=== PATIENT | female | born 1980 | race American Indian/Alaskan Native ===

== ENCOUNTER 2017-04-27 17:30 | Outpatient (CLI) | payer MEDICAID ==
[2017-04-27] MEDS ORDERED: LACTATED RINGERS 500 ML IV ONE (18:14)
[2017-04-27 18:54] VITALS: BP 106/53
[2017-04-27 19:31] LABS: Bilirubin,Urine NEG (Negative); Blood,Urine NEG (Negative); Ketones,Urine NEG (Negative); Leukocyte Esterase,Urine NEG (Negative); Nitrite,Urine NEG (Negative); Protein,Urine <15 mg/dL mg/dL (Negative); Urobilinogen,Urine < 2.0 mg/dL (<2.0); WBC,Urine < 1.0 /HPF (0.0-6.0)
[2017-04-27] MEDS ORDERED: DULCOLAX PR ONE (20:08)
== END 2017-04-27 20:20 | disposition home or self-care (01) ==
LOC: TRG 17:30
PROVIDERS: ATTEND Obstetrics & Gynecology
DX: O09.523 Supervision of elderly multigravida, third trimester (principal); O99.333 Smoking (tobacco) complicating pregnancy, third trimester; O47.03 False labor before 37 completed weeks of gestation, third trimester; Z3A.31 31 weeks gestation of pregnancy
CPT/HCPCS: 59025; 81001

== ENCOUNTER 2017-06-02 11:35 | Outpatient (CLI) | payer MEDICAID ==
[2017-06-02 12:09] VITALS: BP 107/64
== END 2017-06-02 13:10 | disposition home or self-care (01) ==
LOC: TRG 11:35
PROVIDERS: ATTEND Obstetrics & Gynecology
DX: O09.523 Supervision of elderly multigravida, third trimester (principal); O47.1 False labor at or after 37 completed weeks of gestation; Z3A.37 37 weeks gestation of pregnancy
CPT/HCPCS: 59025

== ENCOUNTER 2017-06-15 09:37 | Inpatient (IN) | payer MEDICAID ==
[2017-06-15] MEDS ORDERED: POLYCILLIN/NS 2 GM/100 ML 2 GM/100 ML BAG IV ONE ×3 (11:00→15:30)
[2017-06-15] MEDS ORDERED: MINERAL OIL PO PRN (11:00)
[2017-06-15] MEDS ORDERED: ZOFRAN IV PRN (11:00)
--- NOTE | 2017-06-15 11:07 | History and Physical Report ---
History of Present Illness Date of admission: 06/15/17 09:37 Chief complaint: Presents for scheduled induction of labor per APA recommendation for IUGR History of present illness: Early entry to care, co-managed with [facility] due to AMA, IUGR, and talipes. course complicated by smoking, Vitamin D deficiency, and inconsistent care. Past History Past Medical History: no pertinent history Past Surgical History: PRICE CHANGER/uterine surgery (Salpingectomy; and D&C (EAB)) Family/Genetic History: diabetes (Brother), hypertension (Brother) Social history: no significant social history, single, smoking (Smokes 1/2 Pack Cigarettes Daily; 2 THC Blunts Daily) - Obstetrical History Expected Date of Delivery: 06/23/17 Actual Gestation: 38 Week(s) 6 Day(s) : 6 Para: 2 Hx # Term Pregnancies: 2 Spontaneous Abortions: 2 Induced : 1 Number of Living Children: 2 #1 Gender: Male year: 2,[birth year] Birthweight: 3.799 kg Method of Delivery: Vaginal Gestational age at delivery: 41 Complications: none #2 Infant Gender: Female year: 2,[birth year] Birthweight: 2.438 kg Method of Delivery: Vaginal Gestational age at delivery: 40 Medications and Allergies Allergies Allergy/AdvReac Type Severity Reaction Status Date / Time No Known Allergies Allergy Verified 11/10/16 17:59 Home Medications Medication Instructions Recorded Confirmed Last Taken Type No Known Home Medications [No 11/10/16 11/10/16 Unknown History Reported Home Medications] Active Meds: Active Medications Butorphanol Tartrate (Stadol) 2 mg IV Q2H PRN PRN Reason: Pain , Severe (7-10) Ephedrine Sulfate (Ephedrine Sulfate) 10 mg IV Q2M PRN PRN Reason: Hypotension Stop: 06/16/17 10:59 Ampicillin Sodium (Polycillin/Ns 1 Gm/50 Ml) 1 gm in 50 mls @ 100 mls/hr IV Q4HR HUYEN PRN Reason: Protocol Ampicillin Sodium (Polycillin/Ns 2 Gm/100 Ml) 2 gm in 100 mls @ 100 mls/hr IV ONCE ONE PRN Reason: Protocol Stop: 06/15/17 11:59 Lactated Ringer's (Lactated Ringers) 1,000 mls @ 125 mls/hr IV DIRECT HUYEN Oxytocin/Sodium Chloride (Pitocin/Ns 20 Unit/1000ml Drip) 20 units in 1,000 mls @ 125 mls/hr IV DIRECT HUYEN Oxytocin/Sodium Chloride (Pitocin/Ns 30 Unit/500ml) 30 units in 500 mls @ 4 mls /hr IV TITR HUYEN PRN Reason: Protocol Lidocaine (Xylocaine 2%) 20 ml INFILTRATI ONCE ONE Stop: 06/15/17 10:57 Mineral Oil (Mineral Oil) 30 ml PO QHS PRN PRN Reason: Constipation Naloxone HCl (Narcan 0.4 Mg/1 Ml) 0.1 mg IV Q2MIN PRN PRN Reason: Res Rate </= 8 or 02 SAT < 92% Ondansetron HCl (Zofran) 4 mg IV Q8H PRN PRN Reason: Nausea And Vomiting Terbutaline Sulfate (Brethine) 0.25 mg SUB-Q ONCE PRN PRN Reason: Hyperstimulation/Hypertonicity Stop: 06/15/17 10:57 Terbutaline Sulfate (Brethine) 0.25 mg IVP ONCE PRN PRN Reason: Hyperstimulation/Hypertonicity Stop: 06/15/17 10:57 Review of Systems All systems: negative - Vital Signs Vital signs: Vital Signs Pulse Pulse Ox 80 99 06/15/17 10:49 06/15/17 10:49 Temp Pulse Resp BP Pulse Ox 83 98 06/15/17 11:04 06/15/17 11:04 - Physical Exam Breasts: Positive: normal Cardiovascular: Regular rate Lungs: Positive: Clear to auscultation, Normal air movement Abdomen: Positive: normal appearance, soft, normal bowel sounds Genitourinary (Female): Positive: normal external genitalia, normal perenium Vagina: Positive: normal moisture Uterus: Positive: enlarged - Obstetrical FHR: category 1 Uterine Contraction Monitor Mode: External Cervical Dilatation: 3 Cervical Effacement Percentage: 60 station: -3 Uterine Contraction Pattern: Irregular Uterine Tone Measurement Phase: Resting Uterine Contraction Intensity: Mild Results All other labs normal. Assessment and Plan A: IUP @ 38 6/7 Weeks Category I Tracing IUGR [place] GBS unknown P: Admit to L&D per routine orders Pitocin Induction GBS Prophylaxis
[2017-06-15] MEDS ORDERED: XYLOCAINE 2% INFILTRATI ONE (11:30)
[2017-06-15] MEDS ORDERED: BRETHINE SUB-Q PRN (11:30)
[2017-06-15] MEDS ORDERED: NARCAN 0.4 MG/1 ML IV PRN (11:30)
[2017-06-15 11:42] LABS: Urine Drugs of Abuse Note Disclamer
[2017-06-15] MEDS: LACTATED RINGERS 1,000 ML IV SCH ×3 (11:50→22:44)
[2017-06-15] MEDS ORDERED: BRETHINE IVP PRN (12:00)
[2017-06-15 12:06] LABS: Hematocrit 27.5 % (30.3-42.9); Hemoglobin 9.1 gm/dl (10.1-14.3); Mean Corpuscular HGB Conc 33 % (30-34); Mean Corpuscular Hemoglobin 31 pg (28-32); Mean Corpuscular Volume 93 fl (79-97); Platelet Count 220 K/mm3 (140-440); Red Blood Count 2.95 M/mm3 (3.65-5.03); Red Cell Distribution Width 15.5 % (13.2-15.2); White Blood Count 10.4 K/mm3 (4.5-11.0)
[2017-06-15] MEDS: PITOCin/NS 30 UNIT/500ML 30 UNITS/500 ML BAG IV SCH ×4 (12:10→14:04)
[2017-06-15] MEDS: STADOL IV PRN ×3 (14:34→19:18)
[2017-06-15] MEDS ORDERED: POLYCILLIN/NS 1 GM/50 ML 1 GM/50 ML BAG IV SCH (15:30)
[2017-06-15] MEDS: POLYCILLIN/NS 1 GM/50 ML 1 GM/50 ML BAG IV SCH (19:10)
--- NOTE | 2017-06-15 19:28 | Event Note ---
Date: 06/15/17 Dr. Nathan Fam consulted an updated due to low baseline and induction of labor due to IUGR Agrees with current plan of care
[2017-06-15] MEDS ORDERED: ePHEDrine SULFATE IV PRN (21:19)
[2017-06-15] MEDS ORDERED: NARCAN 2 MG/2 ML IV PRN (21:19)
--- NOTE | 2017-06-15 21:19 | Anesthesia Consultation ---
Anesthesia Consult and Med Hx Date of service: 06/15/17 - Airway Anesthetic Teeth Evaluation: Good ROM Head & Neck: Adequate Mental/Hyoid Distance: Adequate Mallampati Class: Class II Intubation Access Assessment: Probably Good - Pulmonary Exam CTA: Yes - Cardiac Exam Cardiac Exam: RRR - Pre-Operative Health Status ASA Pre-Surgery Classification: ASA2 Proposed Anesthetic Plan: Epidural, Spinal - Pulmonary Hx Smoking: Yes Hx Asthma: No COPD: No Hx Pneumonia: No - Cardiovascular System Hx Hypertension: No - Central Nervous System Hx Seizures: No Hx Back Pain: Yes Hx Psychiatric Problems: No - Endocrine Hx Renal Disease: No Hx End Stage Renal Disease: No Hx Hypothyroidism: No Hx Hyperthyroidism: No - Hematic Hx Anemia: No Hx Sickle Cell Disease: No - Other Systems Hx Alcohol Use: No - Additional Comments Anesthesia Medical History Comments: IUP
[2017-06-15] MEDS: fentaNYL-BUPIV 2 MCG/ML-0.125% 200 MCG/100 ML BAG EPIDURAL SCH (21:30)
[2017-06-15] MEDS: ePHEDrine SULFATE IV PRN ×2 (22:50→22:51)
[2017-06-16] MEDS: POLYCILLIN/NS 1 GM/50 ML 1 GM/50 ML BAG IV SCH ×3 (00:51→07:53)
[2017-06-16] MEDS: ePHEDrine SULFATE IV PRN (01:07)
[2017-06-16] MEDS ORDERED: MARCAINE-EPI/PF 0.5%-1:200,000 INFILTRATI ONE (05:37)
[2017-06-16] MEDS: fentaNYL-BUPIV 2 MCG/ML-0.125% 200 MCG/100 ML BAG EPIDURAL SCH (06:43)
[2017-06-16] MEDS ORDERED: XYLOCAINE MPF 2% ONE (07:28)
[2017-06-16] MEDS: LACTATED RINGERS 1,000 ML IV SCH (07:46)
--- NOTE | 2017-06-16 09:07 | Event Note ---
Date: 06/16/17 O: VE /-1, arom clear fluid, epidural not working, Stadol 2mg IV given, PIT at 12 mu A: Active labor P: Expect
--- NOTE | 2017-06-16 09:09 | Event Note ---
Date: 06/16/17 O: VE anterior rim/C/+1, CAT I tracing, pit increased to 12 mu A: Active labor P: Expect
[2017-06-16] MEDS: PITOCin/NS 20 UNIT/1000ML DRIP 20 UNITS/1,000 ML BAG IV SCH ×2 (09:45→12:10)
--- NOTE | 2017-06-16 09:53 | Procedure Note ---
OB Delivery Note - Delivery Date of Delivery: 06/16/17 Surgeon: FAUZIA RAMIREZ Estimated blood loss: 200cc - Vaginal Delivery presentation: vertex Delivery position: OP Delivery induction: oxytocin Delivery augmentation: rupture of membranes, pitocin Route of delivery: Delivery placenta: spontaneous Delivery cord: 3 umbilical vessels Episiotomy: none Delivery laceration: none Anesthesia: intravenous, epidural Delivery comments: of a viable male 5# 6oz at 0940 on 06/16/2017 over intact perinuem. 8 /9. Placenta delivered 3VCI. FF@ U-1 , lochia small. Mother and baby doing well. - Infant A at 1 minute: 8 at 5 minutes: 9 Infant Gender: Male (5# 6oz)
[2017-06-16] MEDS ORDERED: NORCO 5/325 PO PRN (11:14)
[2017-06-16] MEDS ORDERED: LANSINOH TP PRN (11:14)
[2017-06-16] MEDS ORDERED: BENADRYL PO PRN (11:14)
[2017-06-16] MEDS ORDERED: TYLENOL PO PRN (11:14)
[2017-06-16] MEDS ORDERED: SODIUM CHLORIDE FLUSH SYRINGE 10 ML IV NR (12:00)
[2017-06-16] MEDS: PERCOCET 5/325 PO PRN ×3 (13:12→22:17)
[2017-06-16] MEDS: MOTRIN PO SCH ×2 (13:15→18:15)
[2017-06-16 23:13] LABS: Hematocrit 26.3 % (30.3-42.9); Hemoglobin 8.6 gm/dl (10.1-14.3)
[2017-06-17] MEDS: MOTRIN PO SCH ×2 (02:07→05:35)
--- NOTE | 2017-06-17 09:30 | Progress Note ---
Assessment and Plan A: day 1 S/P spontaneous vaginal delivery. Anemia. P: Anticipate discharge tomorrow. Supplement with iron. Subjective - Subjective Date of service: 06/17/17 Principal diagnosis: day 1 S/P spontaneous vaginal delivery Interval history: day 1 S/P spontaneous vaginal delivery on 06/16/17. Patient is doing well. She is voiding without difficulty and ambulating well. She is tolerating a regular diet without nausea or vomiting. Bottlefeeding. Patient denies headache, dizziness, chest pain, shortness of breath, cough, abdominal pain, leg pain, heavy vaginal bleeding, or symptoms of depression. Patient planning to have Essure procedure for contraception at 8 weeks . Patient reports: appetite normal, voiding normally, pain well controlled, ambulating normally : doing well Objective - Vital Signs Latest vital signs: Vital Signs Temp Pulse Resp BP BP Pulse Ox 06/17/17 01:08 98.5 F 76 18 97/46 06/16/17 21:30 98.3 F 76 18 105/49 06/16/17 16:44 98.5 F 18 119/68 06/16/17 12:32 123/65 06/16/17 12:29 99.0 F 74 18 123/65 100 06/16/17 11:53 85 100 06/16/17 11:52 80 121/65 06/16/17 11:48 73 98 06/16/17 11:43 76 100 06/16/17 11:38 83 96 06/16/17 11:37 88 136/70 06/16/17 11:33 80 99 06/16/17 11:28 79 99 06/16/17 11:23 83 100 06/16/17 11:22 83 164/62 06/16/17 11:18 82 100 06/16/17 11:13 83 100 06/16/17 11:08 86 100 06/16/17 11:07 85 141/75 06/16/17 11:03 91 H 100 06/16/17 10:58 84 100 06/16/17 10:53 80 133/91 100 06/16/17 10:48 81 100 06/16/17 10:43 76 97 06/16/17 10:38 78 100 06/16/17 10:37 76 122/68 06/16/17 10:33 87 100 06/16/17 10:28 87 99 06/16/17 10:23 85 120/73 100 06/16/17 10:18 89 100 06/16/17 10:13 94 H 99 06/16/17 10:08 91 H 99 06/16/17 10:07 94 H 115/63 06/16/17 10:03 94 H 100 06/16/17 09:58 96 H 98 06/16/17 09:56 20 06/16/17 09:53 87 131/76 99 06/16/17 09:44 122 H 107/72 06/16/17 09:39 94 H 97 06/16/17 09:34 95 H 96 06/16/17 09:29 124 H 98 Intake and Output 06/16/17 06/17/17 06/17/17 22:59 06:59 14:59 Intake Total 720 360 Output Total 800 300 Balance -80 60 Intake: Oral 720 Intake, Free Water 360 Output: Urine 800 300 Void 800 300 Other: Total, Intake Amount 720 Total, Output Amount 300 300 # Voids Void 1 1 - Exam Breasts: Present: deferred Cardiovascular: Present: Regular rate Lungs: Present: Clear to auscultation Abdomen: Present: normal appearance, soft. Absent: distention, tenderness, guarding Uterus: Present: normal, firm, fundal height below umbilicus. Absent: bogginess , tenderness Extremities: Present: normal. Absent: tenderness, edema - Labs Labs: Abnormal lab results 06/16/17 Range/Units 22:31 Hgb 8.6 L (10.1-14.3) gm/dl Hct 26.3 L (30.3-42.9) %
[2017-06-17] MEDS: FEOSOL PO SCH ×2 (09:45→22:21)
[2017-06-17] MEDS: PERCOCET 5/325 PO PRN ×3 (09:46→23:04)
--- NOTE | 2017-06-17 16:26 | Progress Note ---
Subjective Date of service: 06/17/17 Principal diagnosis: day 1 S/P spontaneous vaginal delivery Interval history: No anesthetic related complaints. Objective - Constitutional Vitals: Vital Signs - 12hr 06/17/17 08:18 Temperature 97.9 F Pulse Rate 76 Respiratory 20 Rate Blood Pressure 115/66 O2 Sat by Pulse 98 Oximetry - Labs CBC & Chem 7: 06/16/17 22:31 Labs: Abnormal lab results 06/16/17 Range/Units 22:31 Hgb 8.6 L (10.1-14.3) gm/dl Hct 26.3 L (30.3-42.9) %
[2017-06-17] MEDS ORDERED: TUCKS PAD TP PRN (20:44)
[2017-06-18] MEDS: MOTRIN PO SCH (00:01)
[2017-06-18] MEDS: PERCOCET 5/325 PO PRN (08:51)
[2017-06-18 09:31] VITALS: BP 122/81
--- NOTE | 2017-06-18 09:37 | Progress Note ---
Assessment and Plan A: day 2. Anemia. P: Discharge patient to home. Patient is to continue her iron supplementation BID at home (pt. has Rx already). discharge instructions and warning signs were discussed with patient in detail. Advised patient to avoid IC and sexual activity for 6 weeks, avoid lifting and housework and driving for at least 1 month. Advised patient to follow up with [facility] in 6 weeks. Patient voiced understanding of the above instructions. Subjective - Subjective Date of service: 06/18/17 Principal diagnosis: day 2 S/P spontaneous vaginal delivery Interval history: day 2. Patient is doing well. Bottlefeeding. Patient is voiding without difficulty and ambulating well. She is tolerating a regular diet without nausea or vomiting. Patient denies headache, visual disturbance, nausea or vomiting, chest pain, cough, shortness of breath, abdominal pain, leg pain, heavy vaginal bleeding, foul smelling discharge, or symptoms of depression. She plans to have Essure for contraception at 6-8 weeks . Patient reports: appetite normal, voiding normally, pain well controlled, ambulating normally [place]: doing well Objective - Vital Signs Latest vital signs: Vital Signs Temp Pulse Resp BP BP Pulse Ox 06/18/17 09:03 97.8 F 69 18 122/81 98 06/17/17 17:54 98.6 F 68 20 140/64 98 Intake and Output 06/17/17 06/18/17 06/18/17 22:59 06:59 14:59 Intake Total 480 120 Balance 480 120 Intake: Oral 240 120 Intake, Free Water 240 Other: Total, Intake Amount 240 120 # Voids Void 1 - Exam Breasts: Present: deferred Cardiovascular: Present: Regular rate, No murmurs Lungs: Present: Clear to auscultation Abdomen: Present: normal appearance, soft. Absent: distention, tenderness, guarding Uterus: Present: normal, firm, fundal height below umbilicus. Absent: bogginess , tenderness Extremities: Present: normal. Absent: tenderness, edema
--- NOTE | 2017-06-18 09:41 | Discharge Summary ---
Providers - Providers Date of Admission: 06/15/17 09:37 Date of discharge: 06/18/17 Attending physician: ALVAREZ CAZARES MD None Primary care physician: ALVAREZ CAZARES MD Hospitalization Reason for admission: active labor Delivery: Episiotomy: none Laceration: none Other procedures: none complications: none Discharge diagnosis: IUP at term delivered baby: male Condition at discharge: Good Disposition: DC-01 TO HOME OR SELFCARE - Discharge Diagnoses (1) Term delivered Status: Acute Plan - Provider Discharge Summary Activity: routine, no sex for 6 weeks, no heavy lifting 4 weeks, no strenuous exercise Diet: routine Instructions: routine Additional instructions: [] Call your doctor immediately for: * Fever > 100.5 * Heavy vaginal bleeding ( >1 pad per hour) * Severe persistent headache * Shortness of breath * Reddened, hot, painful area to leg or breast - Follow up plan Follow up: ALVAREZ CAZARES MD [Primary Care Provider] - 6 Weeks
== END 2017-06-18 10:30 | disposition home or self-care (01) | DRG 775 ==
LOC: LD 09:37 → OB 06-16 12:39
PROVIDERS: ADMIT Obstetrics & Gynecology; ATTEND Obstetrics & Gynecology
PROC: 10E0XZZ Delivery of Products of Conception, External Approach (ICD-10-PCS; principal; 2017-06-16)
PROC: 3E033VJ Introduction of Other Hormone into Peripheral Vein, Percutaneous Approach (ICD-10-PCS; 2017-06-16)
PROC: 3E0S3CZ (ICD-10-PCS; 2017-06-16)
PROC: 00HU33Z Insertion of Infusion Device into Spinal Canal, Percutaneous Approach (ICD-10-PCS; 2017-06-16)
DX: O99.334 Smoking (tobacco) complicating childbirth (principal); F17.200 Nicotine dependence, unspecified, uncomplicated; O36.5930 Maternal care for other known or suspected poor fetal growth, third trimester, not applicable or unspecified; O75.89 Other specified complications of labor and delivery; O99.03 Anemia complicating the puerperium; D64.9 Anemia, unspecified; Z3A.38 38 weeks gestation of pregnancy; Z83.3 Family history of diabetes mellitus; Z82.49 Family history of ischemic heart disease and other diseases of the circulatory system; Z37.0 Single live birth
CPT/HCPCS: 36415; 80307; 85014; 85018; 85027; 86592; 86850; 86900; 86901; J0290; J0595; J2590; J7120

== ENCOUNTER 2018-03-14 21:40 | Emergency (ER) | payer MEDICAID ==
[2018-03-14 23:52] VITALS: BP 188/94
[2018-03-15 00:50] LABS: Basophils % (Auto) 0.4 % (0.0-1.8); Eosinophils # (Auto) 0.1 K/mm3 (0.0-0.4); Eosinophils % (Auto) 0.6 % (0.0-4.3); Hematocrit 38.5 % (30.3-42.9); Hemoglobin 12.7 gm/dl (10.1-14.3); Lymphocytes # (Auto) 3.3 K/mm3 (1.2-5.4); Lymphocytes % (Auto) 31.4 % (13.4-35.0); Mean Corpuscular HGB Conc 33 % (30-34); Mean Corpuscular Hemoglobin 31 pg (28-32); Mean Corpuscular Volume 92 fl (79-97); Monocytes # (Auto) 0.7 K/mm3 (0.0-0.8); Platelet Count 267 K/mm3 (140-440); Red Blood Count 4.17 M/mm3 (3.65-5.03); Red Cell Distribution Width 13.9 % (13.2-15.2)
[2018-03-15 01:05] LABS: Alanine Aminotransferase 15 units/L (7-56); Albumin 4.7 g/dL (3.9-5); BUN/Creatinine Ratio 13; Blood Urea Nitrogen 9 mg/dL (7-17); Calcium 8.9 mg/dL (8.4-10.2); Hemolysis Index 4
[2018-03-15 04:53] LABS: Bacteria,Urine 1+ /HPF (Negative); Bilirubin,Urine NEG (Negative); Blood,Urine NEG (Negative); Color,Urine Yellow (Yellow); Mucus,Urine 1+ /HPF; Urobilinogen,Urine < 2.0 mg/dL (<2.0)
--- NOTE | 2018-03-15 05:16 | Emergency Department Report ---
ED General Adult HPI - General Chief complaint: Abdominal Pain Stated complaint: ABD PAIN; TOOTHACHE Time Seen by Provider: 03/15/18 02:05 Source: patient, RN notes reviewed Mode of arrival: Ambulatory Limitations: No Limitations - History of Present Illness Initial comments: This is a 38-year-old female. The patient is previously known to this provider. She presents to the ER with multiple complaints. Her first complaint is dentalgia which has been present for weeks. She endorses cold and heat sensitivity. It is through most of her posterior molars. There is no stridor or dysphonia. The patient has not followed up with a dentist. Her next complaint is whitish vaginal discharge which is itchy. She denies urinary symptoms. She also complains of lower abdominal pain. The pain is intermittent, achy, does not radiate anywhere, it is not present now, and does not have exacerbating or relieving factors. -: Gradual Location: head, abdomen, genitals Radiation: other (as per history of present illness) Quality: other (per history of present illness) Improves with: other (history of present illness) Worsens with: other (per history of present illness) Associated Symptoms: denies: confusion, chest pain, cough, diaphoresis, fever/ chills, headaches, loss of appetite, malaise, nausea/vomiting, rash, seizure, shortness of breath, syncope, weakness - Related Data Previous Rx's Medication Instructions Recorded Last Taken Type Acetaminophen [Tylenol Arthritis] 650 mg PO Q6HR PRN #30 tablet.er 03/15/18 Unknown Rx Chlorhexidine Mouthwash [Peridex] 15 ml MM BID #1 bottle 03/15/18 Unknown Rx Ibuprofen [Motrin] 600 mg PO Q8H PRN #30 tablet 03/15/18 Unknown Rx Ondansetron [Zofran Odt] 4 mg PO Q8HR PRN #20 tab.rapdis 03/15/18 Unknown Rx Penicillin V Potassium 500 mg PO QID #20 tablet 03/15/18 Unknown Rx metroNIDAZOLE 0.75% [Vandazole 1 applicator VG QHS #1 tube 03/15/18 Unknown Rx 0.75% VAGINAL] Allergies Allergy/AdvReac Type Severity Reaction Status Date / Time No Known Allergies Allergy Verified 11/10/16 17:59 ED Review of Systems ROS: Stated complaint: ABD PAIN; TOOTHACHE Other details as noted in HPI Comment: All other systems reviewed and negative Constitutional: denies: fever ENT: dental pain. denies: epistaxis Respiratory: denies: wheezing Cardiovascular: denies: chest pain Gastrointestinal: abdominal pain. denies: vomiting Genitourinary: discharge ED Past Medical Hx - Past Medical History Previous Medical History?: Yes Hx Hypertension: No Hx Congestive Heart Failure: No Hx Diabetes: No Hx Deep Vein Thrombosis: No Hx Renal Disease: No Hx Sickle Cell Disease: No Hx Seizures: No Hx Asthma: No Hx COPD: No Hx HIV: No Additional medical history: ectopic preg. - Surgical History Past Surgical History?: Yes Additional Surgical History: Salpingectomy secondary to ectopic ( patient cannot recall which side) - Social History Smoking Status: Current Every Day Smoker Substance Use Type: None - Medications Home Medications: Home Medications Medication Instructions Recorded Confirmed Last Taken Type Acetaminophen [Tylenol Arthritis] 650 mg PO Q6HR PRN #30 tablet.er 03/15/18 Unknown Rx Chlorhexidine Mouthwash [Peridex] 15 ml MM BID #1 bottle 03/15/18 Unknown Rx Ibuprofen [Motrin] 600 mg PO Q8H PRN #30 tablet 03/15/18 Unknown Rx Ondansetron [Zofran Odt] 4 mg PO Q8HR PRN #20 tab.rapdis 03/15/18 Unknown Rx Penicillin V Potassium 500 mg PO QID #20 tablet 03/15/18 Unknown Rx metroNIDAZOLE 0.75% [Vandazole 1 applicator VG QHS #1 tube 03/15/18 Unknown Rx 0.75% VAGINAL] ED Physical Exam - General Limitations: No Limitations General appearance: alert, in no apparent distress - Head Head exam: Present: atraumatic, normocephalic - Eye Eye exam: Present: normal appearance, EOMI. Absent: nystagmus - ENT ENT exam: Present: normal orophraynx, mucous membranes moist, normal external ear exam, other (poor dentition with numerous dental cavities, no stridor, no dysphonia, speaking in full sentences, no fted odor, no elevation at the base) . Absent: normal exam - Neck Neck exam: Present: normal inspection - Respiratory Respiratory exam: Present: normal lung sounds bilaterally. Absent: respiratory distress - Cardiovascular Cardiovascular Exam: Present: regular rate, normal rhythm, normal heart sounds. Absent: systolic murmur, diastolic murmur, rubs, gallop - GI/Abdominal GI/Abdominal exam: Present: soft, normal bowel sounds. Absent: distended, tenderness, guarding, rebound, rigid, pulsatile mass - External exam: Present: normal external exam Speculum exam: Present: normal speculum exam. Absent: vaginal bleeding Bi-manual exam: Present: normal bi-manual exam. Absent: cervical motion tendernes, adnexal tenderness - Extremities Exam Extremities exam: Present: normal inspection, full ROM. Absent: pedal edema, joint swelling, calf tenderness - Back Exam Back exam: Present: normal inspection, full ROM. Absent: tenderness, CVA tenderness (R), muscle spasm, paraspinal tenderness, vertebral tenderness - Neurological Exam Neurological exam: Present: alert, oriented X3, CN II-XII intact, normal gait, other (Extraocular movements intact. Tongue midline. No facial droop. Facial sensation intact to light touch in the V1, V2, V3 distribution bilaterally. 5 and 5 strength in 4 extremities.. Sensation is intact to light touch in 4 extremities.). Absent: motor sensory deficit - Psychiatric Psychiatric exam: Present: normal affect, normal mood - Skin Skin exam: Present: warm, dry, intact, normal color. Absent: rash ED Course Vital Signs 03/14/18 23:37 Temperature 98.5 F Pulse Rate 61 Respiratory 20 Rate Blood Pressure 188/94 O2 Sat by Pulse 100 Oximetry ED Medical Decision Making - Lab Data Result diagrams: 03/15/18 00:16 03/15/18 00:16 Vital Signs 03/14/18 23:37 Temperature 98.5 F Pulse Rate 61 Respiratory 20 Rate Blood Pressure 188/94 O2 Sat by Pulse 100 Oximetry Lab Results 03/14/18 03/15/18 03/15/18 Range/Units Unknown 00:16 00:16 WBC 10.4 (4.5-11.0) K/mm3 RBC 4.17 (3.65-5.03) M/mm3 Hgb 12.7 (10.1-14.3) gm/dl Hct 38.5 (30.3-42.9) % MCV 92 (79-97) fl MCH 31 (28-32) pg MCHC 33 (30-34) % RDW 13.9 (13.2-15.2) % Plt Count 267 (140-440) K/mm3 Lymph % (Auto) 31.4 (13.4-35.0) % [place] % (Auto) 7.0 (0.0-7.3) % Eos % (Auto) 0.6 (0.0-4.3) % Baso % (Auto) 0.4 (0.0-1.8) % Lymph # 3.3 (1.2-5.4) K/mm3 [place] # 0.7 (0.0-0.8) K/mm3 Eos # 0.1 (0.0-0.4) K/mm3 Baso # 0.0 (0.0-0.1) K/mm3 Seg Neutrophils % 60.6 (40.0-70.0) % Seg Neutrophils # 6.3 (1.8-7.7) K/mm3 Sodium 138 (137-145) mmol/L Potassium 3.7 (3.6-5.0) mmol/L Chloride 100.3 (98-107) mmol/L Carbon Dioxide 25 (22-30) mmol/L Anion Gap 16 mmol/L BUN 9 (7-17) mg/dL Creatinine 0.7 (0.7-1.2) mg/dL Estimated GFR > 60 ml/min BUN/Creatinine Ratio 13 % Glucose 98 (65-100) mg/dL Calcium 8.9 (8.4-10.2) mg/dL Total Bilirubin 0.20 (0.1-1.2) mg/dL AST 23 (5-40) units/L ALT 15 (7-56) units/L Alkaline Phosphatase 56 (35-129) units/L Total Protein 7.3 (6.3-8.2) g/dL Albumin 4.7 (3.9-5) g/dL Albumin/Globulin Ratio 1.8 % HCG, Quant (0-4) mIU/mL Urine Color Yellow (Yellow) Urine Turbidity Clear (Clear) Urine pH 5.0 (5.0-7.0) Ur Specific [place] 1.019 (1.003-1.030) Urine Protein 30 mg/dl (Negative) mg/dL Urine Glucose (UA) Neg (Negative) mg/dL Urine Ketones 20 (Negative) mg/dL Urine Blood Neg (Negative) Urine Nitrite Neg (Negative) Urine Bilirubin Neg (Negative) Urine Urobilinogen < 2.0 (<2.0) mg/dL Ur Leukocyte Esterase Neg (Negative) Urine WBC (Auto) 1.0 (0.0-6.0) /HPF Urine RBC (Auto) 5.0 (0.0-6.0) /HPF U Epithel Cells (Auto) 13.0 (0-13.0) /HPF Urine Bacteria (Auto) 1+ (Negative) /HPF Urine Mucus 1+ /HPF 03/15/18 Range/Units 00:16 WBC (4.5-11.0) K/mm3 RBC (3.65-5.03) M/mm3 Hgb (10.1-14.3) gm/dl Hct (30.3-42.9) % MCV (79-97) fl MCH (28-32) pg MCHC (30-34) % RDW (13.2-15.2) % Plt Count (140-440) K/mm3 Lymph % (Auto) (13.4-35.0) % [place] % (Auto) (0.0-7.3) % Eos % (Auto) (0.0-4.3) % Baso % (Auto) (0.0-1.8) % Lymph # (1.2-5.4) K/mm3 [place] # (0.0-0.8) K/mm3 Eos # (0.0-0.4) K/mm3 Baso # (0.0-0.1) K/mm3 Seg Neutrophils % (40.0-70.0) % Seg Neutrophils # (1.8-7.7) K/mm3 Sodium (137-145) mmol/L Potassium (3.6-5.0) mmol/L Chloride (98-107) mmol/L Carbon Dioxide (22-30) mmol/L Anion Gap mmol/L BUN (7-17) mg/dL Creatinine (0.7-1.2) mg/dL Estimated GFR ml/min BUN/Creatinine Ratio % Glucose (65-100) mg/dL Calcium (8.4-10.2) mg/dL Total Bilirubin (0.1-1.2) mg/dL AST (5-40) units/L ALT (7-56) units/L Alkaline Phosphatase (35-129) units/L Total Protein (6.3-8.2) g/dL Albumin (3.9-5) g/dL Albumin/Globulin Ratio % HCG, Quant < 2 (0-4) mIU/mL Urine Color (Yellow) Urine Turbidity (Clear) Urine pH (5.0-7.0) Ur Specific [place] (1.003-1.030) Urine Protein (Negative) mg/dL Urine Glucose (UA) (Negative) mg/dL Urine Ketones (Negative) mg/dL Urine Blood (Negative) Urine Nitrite (Negative) Urine Bilirubin (Negative) Urine Urobilinogen (<2.0) mg/dL Ur Leukocyte Esterase (Negative) Urine WBC (Auto) (0.0-6.0) /HPF Urine RBC (Auto) (0.0-6.0) /HPF U Epithel Cells (Auto) (0-13.0) /HPF Urine Bacteria (Auto) (Negative) /HPF Urine Mucus /HPF - Medical Decision Making Differential diagnosis, including but not limited to: Dentalgia, constipation, urinary tract infection, pelvic inflammatory disease, vaginitis Assessment and plan: 38-year-old female with chronic dental pain, no obvious abscess, no obvious oral compromise, patient will be started on Tylenol, Motrin for pain, chlorhexidine, and penicillin. She is instructed to follow-up in outpatient dentist as soon as possible. Her physical exam was benign with the exception of elevated blood pressure, please reference the [employer] clinical policy on hypertension that is non-symptomatica The patient's abdomen is soft and benign with no rebound, guarding or peritoneal signs, there is no right lower quadrant tenderness, there is no right upper quadrant tenderness, and there is no pulsatile abdominal mass. Does not appear to be an emergent condition at this time, and the patient can follow-up as an outpatient. Do not suspect pelvic inflammatory disease given lack of cervical motion tenderness, adnexal tenderness. Critical care attestation.: If time is entered above; I have spent that time in minutes in the direct care of this critically ill patient, excluding procedure time. ED Disposition Clinical Impression: Dentalgia, Vaginitis Disposition: TO HOME OR SELFCARE Is pt being admited?: No Does the pt Need Aspirin: No Condition: Stable Instructions: Abdominal Pain (ED) Additional Instructions: Take the pain medications as directed, antibiotic, mouthwash as directed. Follow up with a dentist within the next week. Follow up with the primary care doctor within the next 2 weeks for elevated blood pressure. Long-term complications of hypertension and elevated blood pressure includes stroke, heart attack, disability, paralysis, loss of quality of life. Return to the ER right away with new pain, worsened pain, migration of pain, fevers, chills, lethargy, irritability, productive vomiting, change in mental status, inability to tolerate liquid feeds. 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 Referrals: PRIMARY CARE [Primary Care Provider] - 3-5 Days [facility] [Provider Group] - 3-5 Days [facility] [Provider Group] - 3-5 Days [facility] [Provider Group] - 3-5 Days [facility] [Outside] - 3-5 Days
== END 2018-03-15 05:20 | disposition home or self-care (01) ==
LOC: ED 21:40
DX: N76.0 Acute vaginitis (principal); K08.89 Other specified disorders of teeth and supporting structures; F17.200 Nicotine dependence, unspecified, uncomplicated; Z90.89 Acquired absence of other organs
CPT/HCPCS: 36415; 80053; 81001; 84702; 85025; 87210; 87591; 99284